=== PATIENT | female | born 1970 | race Hispanic/Latino ===

== ENCOUNTER 2017-07-08 07:36 | Inpatient (IN) | payer MEDICARE ==
[2017-07-05 11:44] VITALS: BMI 22.4
[2017-07-08] MEDS ORDERED: Lidocaine 2% Inj (20ml) ONE (08:04)
[2017-07-08] MEDS ORDERED: Midazolam 2 MG/2 ML VIAL ONE ×4 (08:04→10:47)
[2017-07-08] MEDS ORDERED: Iodixanol 320 MG/ML 200 ML BOTTLE IV ONE (10:57)
[2017-07-08] MEDS ORDERED: Iodixanol 320 MG/ML 100 ML BOTTLE IV ONE ×2 (11:20→13:13)
[2017-07-08] MEDS: Sodium Chloride 0.9% 500 ML IV SCH ×2 (13:30→20:30)
--- NOTE | 2017-07-08 16:28 | CP.PCM.HP ---
History of Present Illness - History of Present Illness History of Present Illness: H/P for Dr. Muse - BRAD RIVERO, PGY-1 CC: PVD Procedure HPI: 47 WF with pertinent PMHx of PVD presents with several months duration of LLE pain and tingling, as well as L toe ulcer. Pt states that she went to a neurologist but her work up with the neurologist was negative. She had b/l LE u /s which showed occlusions, which is why she was referred to Dr. Muse. Pt denies f/ch/cp/sob/n/v/d/dysuria/frequency/urgency/hematuria/hematochezia/ hematemesis PSHx: Pt denies PMHx: PVD, Fibromyalgia All: Trazodone SocHx: Heavy smoker Hosp: No recent FamHx: HTN Meds: See OCT ROS: Const'l: pt denies fever, chills, generalized weakness ENT: pt denies dysphagia, otalgia, hearing deficit, rhinorrhea Eyes: pt denies sudden loss of vision, diplopia, blurred vision MSK: +see hpi Cardio: pt denies sob, heart murmur, cp Pulm: pt denies cough, hemoptysis, wheeze GI: pt denies loss of appetite, abdominal pain, constipation, melena, n/v/d : pt denies burning on urination, urinary frequency, hematuria, urinary urgency Neuro: pt denies paresis, paresthesia, dizziness, aldridge, numbness, tingling Derm: pt denies skin changes, lesions, nail changes Endo: pt denies intolerance to heat/cold, diaphoresis, night sweats, polydipsia Psych: pt denies anxiety, depression, mood changes Present on Admission - Present on Admission Any Indicators Present on Admission: No Past Patient History - Past Medical History & Family History Past Medical History?: Yes - Past Social History Smoking Status: Former Smoker - CARDIAC Hx Circulatory Problems: Yes (PAD) Hx Hypotension: Yes Hx Peripheral Vascular Disease: Yes (FEET ) - PULMONARY Hx Respiratory Disorders: No - NEUROLOGICAL Hx Neurological Disorder: Yes - HEENT Hx HEENT Problems: No - RENAL Hx Chronic Kidney Disease: No - ENDOCRINE/METABOLIC Hx Endocrine Disorders: Yes Hx Systemic Lupus Erythematosus: Yes - HEMATOLOGICAL/ONCOLOGICAL Hx Blood Disorders: No - INTEGUMENTARY Hx Dermatological Problems: Yes (ULCER TIP OF ) - MUSCULOSKELETAL/RHEUMATOLOGICAL Hx Musculoskeletal Disorders: Yes Hx Fractures: Yes (RIGHT WRIST SPLINT AND CAST) Hx Rheumatoid Arthritis: Yes - GASTROINTESTINAL Hx Gastrointestinal Disorders: No - GENITOURINARY/GYNECOLOGICAL Hx Genitourinary Disorders: No - PSYCHIATRIC Hx Psychophysiologic Disorder: Yes Hx Anxiety: Yes Hx Depression: Yes - SURGICAL HISTORY Hx Surgeries: Yes Hx Hysterectomy: Yes Other/Comment: TEETH EXTRACTION - ANESTHESIA Hx Anesthesia: Yes Hx Anesthesia Reactions: No Hx Malignant Hyperthermia: No Has any member of the family had a problem w/ anesthesia?: No Meds Allergies/Adverse Reactions: Allergies Allergy/AdvReac Type Severity Reaction Status Date / Time trazodone Allergy RASH Verified 06/28/17 10:17 Physical Exam - Additional Findings Additional findings: Phys Exam: VS as below Const'l: a&o x 4, nad Head/Neck: neck supple, no jvd, trachea midline, carotid midline, no cervical /head mass Eyes: elba, nonicteric sclera, eom intact ENT: auditory acuity grossly intact, throat not congested, no nasal deformity Cardio: rrr, no m/r/g, no carotid bruit, nml s1, s2 Pulm: no accessory muscle use, equal nml breath sounds bilaterally, ctab Abd: s/nt/nd, nbs x 4 q, no palpable masses Derm: no rashes, no ulcers, no lesions Extr: +L hallux ulcer; no edema, no cyanosis, no calf tenderness, no lesions , no varicosities Neuro: cn II-XII grossly intact, ue and le 5/5 muscle strength bilaterally, no los ue, le bilaterally and core Assessment & Plan - Assessment and Plan (Free Text) Assessment: A/P 47 F with PVD, underwent cath to relieve claudication and reperfusion. Post-Cath - Statin - ASA/Plavix - 24 hour observation to monitor bleeding DVT/GI PPHXS - No DVT PPHXS, as patient is on ASA/Plavix - Protonix Crescencio S. DO PGY - 1 d/w Dr. Muse
[2017-07-08] MEDS ORDERED: Naproxen 550 mg Tab PO PRN (18:20)
[2017-07-08] MEDS ORDERED: Rosuvastatin Calcium 2.5 mg Tab PO SCH (22:00)
--- NOTE | 2017-07-09 08:13 | CARDCATH ---
PROCEDURE DATE: 07/08/2017 INDICATIONS: Ms. Lantigua is a 47-year-old female with a [id number] history of smoking, was referred to me for evaluation of gangrene of left first toe. Patient had undergone an arterial duplex and was noted to have left anterior tibial artery occlusion and was brought for intervention of left AT. PROCEDURE PERFORMED: Distal abdominal aortogram with bilateral iliac runoff, right iliofemoral angiogram with runoff -Ghanaian bilateral femoral arterial access, Ghanaian left brachial arterial access, left subclavian angiogram bilateral kissing balloon angioplasty of chronic totally occluded iliac, bilateral stenting of common iliac artery with use of 7 mm x 59 mm Viabahn balloon-expandable stent in the right common iliac artery and a 7 x 69 mm Viabahn balloon-expandable stent in the left common iliac artery extending into the external iliac artery, lesion reduction from 100% down to 0% and DISHA 0 to DISHA 3 flow. Manual pressure for hemostasis. TECHNIQUES OF PROCEDURE: After obtaining informed consent, the patient was brought to the cardiac cath suite in post-absorptive and non-sedated state. The patient was prepped and draped in the usual sterile fashion. Then, 2% lidocaine was used for infiltration of anesthesia. Using modified Seldinger technique, 6-Ghanaian sheath was introduced into the right femoral artery. Subsequently, a J-wire was attempted to advance, but it was unable to go past the common iliac secondary to chronic total occlusion. At this point, a left common femoral artery access was obtained with a 6-Ghanaian sheath. Again, the wire was unable to be cannulated to the common iliac secondary to chronic total occlusion. Subsequently, a left 5-Ghanaian branchial artery access was obtained using the ultrasound guidance. Subsequently, a pigtail catheter was advanced, which was difficult to negotiate, into the descending aorta. At this point, a left subclavian angiogram was obtained and after visualization, the catheter was advanced into the descending abdominal aorta. Abdominal aortogram with bilateral iliac runoff was performed and distal aortic occlusion was identified. Subsequently, over an 0.035 CSI supporting catheter, 0.035 GlideWire Advantage wire was negotiated into the stump of the left common iliac artery. Subsequently, an 0.018 CSI catheter from the left common femoral artery was advanced in a retrograde fashion. The two catheters were met in the middle in the SAFARI technique. Subsequently, the catheters were replaced from retrograde to the antegrade approach and was brought out from the left common femoral artery. At this point, the balloon was advanced. Subsequently, the same technique was used on to the right side. At this point, a 0.018 CSI catheter was advanced in the antegrade fashion above from the base of the access into the right common iliac artery and an Approach RING PACKER 12 guidewire was used to negotiate into the distal lumen. The wire was confirmed and using the SAFARI technique, the wires were retrieved out from the right common femoral artery. Subsequently, kissing balloon angioplasty of the bilateral common iliac arteries was done and subsequently, a 7 x 59 on the right common iliac and a 7 x 79 in the left common iliac artery stents were deployed. Kissing balloon angioplasties were done. Final angiogram showed lesion reduction down to 0% with good DISHA 3 flow. In the beginning of the case, the right common femoral artery pressure was 60 mmHg, which were nonpulsatile and the left common femoral artery pressure of 55 mmHg, which was also nonpulsatile. At the end of the case, bilateral common femoral arteries pressures were obtained, which had normal aortic waveforms with pressure of 140 in the left common femoral, pressure of 139 mmHg. IMPRESSION: Successful bilateral common iliac artery stenting with the use of balloon-expandable wires x 10. RECOMMENDATIONS: Patient is to be kept on dual-antiplatelet therapy, guideline-directed therapy for peripheral vascular disease. Followup in [address] Muse's office. Thank you Dr. Dat Kelsey and Dr. Ac Chase for letting me participate in the care of your patient. Patient will be discharged home in the morning and follow up with you as an outpatient. Arnav Muse MD
--- NOTE | 2017-07-09 08:28 | CP.PCM.DIS ---
Provider - Provider Date of Admission: 07/08/17 13:29 Attending physician: Arnav Muse MD Consults: Consult was also admitting Cardiology: Attending [employer], Dr. Muse Resident, PGY - 1, Dr. Espinosa [phone] Time Spent in preparation of Discharge (in minutes): 30 Hospital Course - Hospital Course Hospital Course: HPI: 47 WF with pertinent PMHx of PVD presents with several months duration of LLE pain and tingling, as well as L toe ulcer. Pt states that she went to a neurologist but her work up with the neurologist was negative. She had b/l LE u /s which showed decreased perfusion, which is why she was referred to Dr. Muse. Pt denies f/ch/cp/sob/n/v/d/dysuria/frequency/urgency/hematuria/hematochezia/ hematemesis Hospital Course: Pt underwent a distal abdominal aortogram w/ b/l iliac runoff and a R iliofemoral angiogram with runoff, with left brachial arterial access and left subclavian angiogram b/l kissing balloon angioplasty. Procedure was successful in b/l common iliac artery stenting with use of balloon -expandable wires X 10. Pt was deemed stable for discharge the following morning. Discharge Exam - Additional Findings Additional findings: Phys Exam: VS as below Const'l: a&o x 4, nad Head/Neck: neck supple, no jvd, trachea midline, carotid midline, no cervical /head mass Eyes: elba, nonicteric sclera, eom intact ENT: auditory acuity grossly intact, throat not congested, no nasal deformity Cardio: rrr, no m/r/g, no carotid bruit, nml s1, s2 Pulm: no accessory muscle use, equal nml breath sounds bilaterally, ctab Abd: s/nt/nd, nbs x 4 q, no palpable masses Derm: no rashes, no ulcers, no lesions Extr: +L hallux ulcer; +L brachial access c/d/i; no edema, no cyanosis, no calf tenderness, no lesions, no varicosities Neuro: cn II-XII grossly intact, ue and le 5/5 muscle strength bilaterally, no los ue, le bilaterally and core Discharge Plan - Discharge Medications Prescriptions: Aspirin [Aspirin Chewable] 81 mg PO DAILY #90 chew Clopidogrel [Plavix] 75 mg PO DAILY #90 tab Rosuvastatin Calcium 2.5 [Crestor] 2.5 mg PO HS #90 tab - Follow Up Plan Condition: GOOD Disposition: HOME/ ROUTINE Patient education suggested?: Yes Instructions: Peripheral Vascular Disease (DC) Additional Instructions: 1.) It is important that you take your two new medications, Aspirin, and Clopidogrel (Plavix), as directed to prevent closing of your stent 2.) Please follow up with Dr. Muse in his clinic within ONE WEEK 3.) If you experience blood in the stool or any other significant bleeding, please go to the emergency department immediately and inform them that you are on blood thinners. 4.) If your symptoms recur or worsen, please return to the emergency department Clinical Quality Measures - CQM - Stroke Antithrombotic Prescribed: Yes
[2017-07-09] MEDS ORDERED: Pantoprazole 40 mg EC Tab PO SCH (10:00)
[2017-07-09] MEDS ORDERED: Enoxaparin 40 mg Syringe SC SCH (10:00)
[2017-07-09] MEDS ORDERED: Vitamin B Complex/Vitamin C Tab PO SCH (10:00)
[2017-07-09] MEDS ORDERED: Cilostazol 100 mg Tab UD PO SCH (10:00)
[2017-07-09 16:40] VITALS: BP 94/60; PULSE 81; RESP 20; TEMP 98.3; O2SAT 98
[2017-07-09] MEDS: Sodium Chloride 0.9% 500 ML IV SCH (17:58)
== END 2017-07-09 19:07 | disposition home or self-care (01) | DRG 253 ==
LOC: C.CATHLAB 07:36 → C.9S 13:29 → C.6T 13:51
PROVIDERS: ADMIT Internal Medicine Interventional Cardiology; ATTEND Internal Medicine Interventional Cardiology
PROC: B40DYZZ Plain Radiography of Aorta and Bilateral Lower Extremity Arteries using Other Contrast (ICD-10-PCS; principal; 2017-07-08)
PROC: 047D3DZ Dilation of Left Common Iliac Artery with Intraluminal Device, Percutaneous Approach (ICD-10-PCS; 2017-07-08)
PROC: 047C3DZ Dilation of Right Common Iliac Artery with Intraluminal Device, Percutaneous Approach (ICD-10-PCS; 2017-07-08)
DX: I74.5 Embolism and thrombosis of iliac artery (principal); I70.262 Atherosclerosis of native arteries of extremities with gangrene, left leg; M32.9 Systemic lupus erythematosus, unspecified; L97.529 Non-pressure chronic ulcer of other part of left foot with unspecified severity; F32.9 Major depressive disorder, single episode, unspecified; F17.210 Nicotine dependence, cigarettes, uncomplicated; M06.9 Rheumatoid arthritis, unspecified; F41.9 Anxiety disorder, unspecified